=== PATIENT | male | born 1960 | race American Indian/Alaskan Native ===

== ENCOUNTER 2021-05-20 13:05 | Emergency (ER) | payer OTHER ==
[2021-05-20 14:06] VITALS: BP 185/109
--- NOTE | 2021-05-20 16:45 | Vascular Lab Report ---
DUPLEX DOPPLER LOWER EXTREMITY VEINS, LEFT INDICATION / CLINICAL INFORMATION: swelling. TECHNIQUE: Duplex doppler imaging was performed through the veins of the left lower extremity using v enous compression and other maneuvers. COMPARISON: None available. FINDINGS: LEFT COMMON FEMORAL VEIN: Negative. LEFT FEMORAL VEIN: Negative. LEFT POPLITEAL VEIN: Negative. LEFT CALF VEINS: Negative. ADDITIONAL FINDINGS: None. IMPRESSION: 1. No sonographic evidence for DVT in the left lower extremity. Signer Name: Vijay Mart MD Signed: 05/20/2021 4:40 PM Workstation Name: [id number]
--- NOTE | 2021-05-20 17:27 | Emergency Department Report ---
ED General Adult HPI - General Chief complaint: Extremity Injury, Lower Stated complaint: KNOT ON LT LEG Time Seen by Provider: 05/20/21 16:06 Source: patient Mode of arrival: Ambulatory Limitations: No Limitations - History of Present Illness -: This afternoon Location: lower extremity Radiation: non-radiation Quality: stabbing, sharp Consistency: constant Worsens with: movement (And palpations of the region) Associated Symptoms: denies: confusion, chest pain, cough, diaphoresis, headaches, loss of appetite, nausea/vomiting, shortness of breath, syncope Treatments Prior to Arrival: none - Related Data Home Medications Medication Instructions Recorded Confirmed Last Taken hydroCHLOROthiazide [HCTZ] 25 mg PO QDAY 01/12/15 01/12/15 01/12/15 Previous Rx's Medication Instructions Recorded Last Taken Type Dabigatran [Pradaxa] 150 mg PO BID #60 01/13/15 01/12/15 Rx dilTIAZem [Cardizem] 90 mg PO BID #60 tablet 01/13/15 Unknown Rx lisinopriL [Lisinopril] 10 mg PO BID #60 01/13/15 01/12/15 Rx Compression Socks, Large 1 each MC DAILY #1 each 05/20/21 Unknown Rx [Lifestylecomfort Socks] Ketorolac [Toradol] 10 mg PO Q6H PRN #10 tablet 05/20/21 Unknown Rx Allergies Allergy/AdvReac Type Severity Reaction Status Date / Time No Known Allergies Allergy Unverified 10/18/13 16:32 ED Review of Systems ROS: Stated complaint: KNOT ON LT LEG Other details as noted in HPI Comment: All other systems reviewed and negative ED Past Medical Hx - Past Medical History Hx Hypertension: Yes Hx Congestive Heart Failure: No Hx Diabetes: No Hx Asthma: No Hx COPD: No Additional medical history: A-fib - Surgical History Additional Surgical History: Ankit Knee replacement - Social History Smoking Status: Never Smoker - Medications Home Medications: Home Medications Medication Instructions Recorded Confirmed Last Taken Type hydroCHLOROthiazide [HCTZ] 25 mg PO QDAY 01/12/15 01/12/15 01/12/15 History Dabigatran [Pradaxa] 150 mg PO BID #60 01/13/15 01/12/15 01/12/15 Rx dilTIAZem [Cardizem] 90 mg PO BID #60 tablet 02/16/15 Unknown Rx lisinopriL [Lisinopril] 10 mg PO BID #60 01/13/15 01/12/15 01/12/15 Rx Compression Socks, Large 1 each MC DAILY #1 each 05/20/21 Unknown Rx [Lifestylecomfort Socks] Ketorolac [Toradol] 10 mg PO Q6H PRN #10 tablet 05/20/21 Unknown Rx ED Physical Exam - General Limitations: No Limitations General appearance: alert, in no apparent distress - Head Head exam: Present: atraumatic, normocephalic - Eye Eye exam: Present: normal appearance, PERRL, EOMI Pupils: Present: normal accommodation - ENT ENT exam: Present: normal exam, mucous membranes moist, TM's normal bilaterally - Neck Neck exam: Present: normal inspection, full ROM - Respiratory Respiratory exam: Present: normal lung sounds bilaterally. Absent: respiratory distress, wheezes, rales, chest wall tenderness, accessory muscle use - Cardiovascular Cardiovascular Exam: Present: regular rate, normal rhythm. Absent: systolic murmur, diastolic murmur, rubs, gallop - GI/Abdominal GI/Abdominal exam: Present: soft, normal bowel sounds. Absent: guarding, rebound - Rectal Rectal exam: Present: deferred - Extremities Exam Extremities exam: Present: normal inspection, tenderness, normal capillary r efill - Expanded Lower Extremity Exam Left Lower Leg exam: Present: tenderness, swelling, erythema. Absent: abrasion, deformity, crepidus, palpable cord, Silvia's sign Foot/Toe exam: Present: normal inspection, full ROM Neuro vascular tendon exam: Present: no vascular compromise 1 - Some redness and tenderness to this region with apparent AVM formation mild induration to this area noted. No lymphangitis. No popliteal mass pulses 2+ capillary refill is brisk - Back Exam Back exam: Present: normal inspection - Neurological Exam Neurological exam: Present: alert, oriented X3, CN II-XII intact - Psychiatric Psychiatric exam: Present: normal affect, normal mood. Absent: flat affect, manic - Skin Skin exam: Present: warm, dry, intact, normal color. Absent: rash, erythema, urticaria, pallor, abrasion, ecchymosis ED Course Vital Signs 05/20/21 14:03 Temperature 97.8 F Pulse Rate 77 Respiratory 20 Rate Blood Pressure 185/109 O2 Sat by Pulse 97 Oximetry ED Medical Decision Making - Medical Decision Making 60-year-old -[place] male currently on blood thinners presents emerged department complaining of left lower extremity pain and swelling was started today while he was at work of unknown etiology. He reports no blunt trauma. His ultrasound showed no acute processes. In the area of concern there is some erythema and some varicosities noted and mild induration. No lymph and angitis. The evolution of infection is possible however currently it appears this may b e more likely secondary to his venous insufficiency in the varicosities. He is on blood thinners but thrombophlebitis is still in the differential as well. We will treat him accordingly with compression stockings and anti-inflammatories and reeval evaluate. If an infection does does begin to involve will incorporate antibiotics. Critical care attestation.: If time is entered above; I have spent that time in minutes in the direct care of this critically ill patient, excluding procedure time. ED Disposition Clinical Impression: Lower extremity edema Disposition: DC-01 TO HOME OR SELFCARE Is pt being admited?: No Does the pt Need Aspirin: No Condition: Stable Instructions: Peripheral Edema, Thrombophlebitis Additional Instructions: Patient follow-up with your provider within 24 to 48 hours to reevaluate your leg to ensure that no infectious processes is is present at this present time looks like this is more related to your venous insufficiency and vasculopathy Prescriptions: Compression Socks, Large [Lifestylecomfort Socks] 1 each MC DAILY #1 each Ketorolac [Toradol] 10 mg PO Q6H PRN #10 tablet PRN Reason: Pain Referrals: COLLIN DRUMMOND MD [Staff Physician] - 3-5 Days
== END 2021-05-20 18:33 | disposition home or self-care (01) ==
LOC: ED 13:05
DX: R60.0 Localized edema (principal); I10 Essential (primary) hypertension; Z98.890 Other specified postprocedural states; Z79.899 Other long term (current) drug therapy